=== PATIENT | female | born 1950 | race African-American/Black ===

== ENCOUNTER 2016-03-30 12:35 | Inpatient (IN) | payer MEDICARE, OTHER ==
[~2016-03-30] VITALS: Ht 160 cm; Wt 117.9 kg
[2016-03-30] MEDS ORDERED: DILAUDID 1 MG/ML AMP ONE (20:25)
[2016-03-30] MEDS ORDERED: ONDANSETRON 4 MG VIAL ONE (20:26)
[2016-03-30] MEDS ORDERED: LEVOFLOXACIN 500 MG TAB PO ONE (21:15)
[2016-03-30] MEDS ORDERED: ONDANSETRON 4 MG VIAL IV PUSH PRN (21:55)
[2016-03-30] MEDS ORDERED: CEFTRIAXONE 1 GM VIAL ONE (21:55)
[2016-03-30] MEDS ORDERED: ALPRAZOLAM 0.25 MG TAB PO PRN (21:55)
[2016-03-30] MEDS ORDERED: ACETAMINOPHEN 325 MG TAB PO PRN (21:55)
[2016-03-30] MEDS ORDERED: SODIUM CHLORIDE 0.9% 100 ML IV ONE (21:56)
[2016-03-30] MEDS ORDERED: ACETAMINOPHEN 325 MG TAB ONE (22:03)
[2016-03-30 23:05] VITALS: BP_SYST 168; RESP 18; TEMP 98.6
[2016-03-30 23:06] VITALS: BMI 46.4
[2016-03-31] VITALS (8 sets, daily range): BP systolic 112–160; RESP 16–20; TEMP 96.2–98; Ht 160 cm; Wt 117.9 kg
[2016-03-31] MEDS ORDERED: MISSING DOSE XX ONE ×3 (00:05→16:35)
[2016-03-31] MEDS ORDERED: ONDANSETRON 4 MG VIAL IV PUSH PRN (05:00)
[2016-03-31] MEDS ORDERED: ONDANSETRON 4 MG VIAL ONE (05:01)
[2016-03-31] MEDS ORDERED: DUONEB INH PRN (06:35)
[2016-03-31] MEDS ORDERED: Hydrocodone/APAP 10/325 MG TAB PO PRN (06:35)
[2016-03-31] MEDS: ERYTHROMYCIN 250 MG TAB PO SCH ×3 (09:29→20:45)
[2016-03-31] MEDS: METOCLOPRAMIDE 10 MG/2 ML VIAL IV PUSH SCH ×3 (09:29→17:03)
[2016-03-31] MEDS: PANTOPRAZOLE 40 MG TAB PO SCH (09:29)
[2016-03-31] MEDS: ALPRAZOLAM 1 MG TAB PO SCH ×2 (09:30→20:46)
[2016-03-31] MEDS ORDERED: CALCIUM ACETATE 667MG CAP PO SCH (16:00)
[2016-03-31] MEDS ORDERED: *PINK BRACELET XX ONE (17:15)
[2016-03-31] MEDS: *HOME MEDS IN MED CART XX SCH (20:00)
[2016-03-31] MEDS ORDERED: **NOTE TO NURSE XX SCH (20:00)
[2016-03-31] MEDS: Carvedilol 6.25 MG TAB PO SCH (20:46)
[2016-04-01] MEDS: METOCLOPRAMIDE 10 MG/2 ML VIAL IV PUSH SCH ×3 (06:07→16:00)
[2016-04-01] MEDS: CALCIUM ACETATE 667MG CAP PO SCH ×3 (06:08→16:00)
[2016-04-01] MEDS: PANTOPRAZOLE 40 MG TAB PO SCH (06:08)
[2016-04-01] MEDS: *HOME MEDS IN MED CART XX SCH (07:26)
[2016-04-01 07:50] VITALS: BP_SYST 136; RESP 18; TEMP 97.5
[2016-04-01] MEDS: ERYTHROMYCIN 250 MG TAB PO SCH ×2 (08:21→16:00)
[2016-04-01] MEDS: Carvedilol 6.25 MG TAB PO SCH (08:21)
[2016-04-01] MEDS: ALPRAZOLAM 1 MG TAB PO SCH (08:21)
[2016-04-01] MEDS ORDERED: ALBUMIN HUMAN 25GM (25%) 100 ML IV PRN (08:40)
[2016-04-01] MEDS ORDERED: SODIUM CHLORIDE 0.9% 1,000 ML IV PRN (08:40)
[2016-04-01] MEDS ORDERED: SODIUM CHLORIDE 0.9% 1,000 ML IV SCH (08:40)
[2016-04-01] MEDS ORDERED: ONDANSETRON 4 MG VIAL IV PRN (08:40)
[2016-04-01 11:48] VITALS: BP_SYST 118; RESP 16; TEMP 96.7
[2016-04-01 16:37] VITALS: BP_SYST 118; RESP 16; TEMP 96.7
[2016-04-01 16:47] VITALS: BP_SYST 167; RESP 18; TEMP 97.4
[2016-04-01 17:51] VITALS: BP_SYST 180; RESP 18; TEMP 98.5
== END 2016-04-01 18:46 | disposition home or self-care (01) | DRG 91 ==
LOC: ENRESERVTM → ENRESERVDT → ER 12:35 → EMR 21:34 → 4THE 22:27 → ENPENDDIS 03-31 15:41 → OBSVTOIN 03-31 15:41
PROVIDERS: ADMIT Internal Medicine Nephrology; ATTEND Internal Medicine Nephrology
DX: G92 Toxic encephalopathy (principal); N18.6 End stage renal disease; I13.2 Hypertensive heart and chronic kidney disease with heart failure and with stage 5 chronic kidney disease, or end stage renal disease; D70.1 Agranulocytosis secondary to cancer chemotherapy; F03.90 Unspecified dementia, unspecified severity, without behavioral disturbance, psychotic disturbance, mood disturbance, and anxiety; C90.01 Multiple myeloma in remission; I50.30 Unspecified diastolic (congestive) heart failure; T50.995A Adverse effect of other drugs, medicaments and biological substances, initial encounter; Z99.2 Dependence on renal dialysis; J44.9 Chronic obstructive pulmonary disease, unspecified; G47.33 Obstructive sleep apnea (adult) (pediatric); E66.9 Obesity, unspecified; I25.10 Atherosclerotic heart disease of native coronary artery without angina pectoris; F32.9 Major depressive disorder, single episode, unspecified; F41.9 Anxiety disorder, unspecified; Z82.49 Family history of ischemic heart disease and other diseases of the circulatory system; Z83.3 Family history of diabetes mellitus; Z82.5 Family history of asthma and other chronic lower respiratory diseases; Z80.1 Family history of malignant neoplasm of trachea, bronchus and lung; E11.43 Type 2 diabetes mellitus with diabetic autonomic (poly)neuropathy; K31.84 Gastroparesis
CPT/HCPCS: 36415; 70450; 75809; 80053; 81001; 83690; 85025; 87077; 87088; 87186; 94799; 96374; 96375

== ENCOUNTER 2016-04-08 17:02 | Observation (INO) | payer MEDICARE, OTHER ==
[~2016-04-08] VITALS: Ht 160 cm; Wt 118.7 kg
[2016-04-08] MEDS ORDERED: ACETAMINOPHEN 325 MG TAB PO PRN (19:35)
[2016-04-08] MEDS ORDERED: GLUCAGON 1 MG VIAL IM PRN (19:35)
[2016-04-08] MEDS ORDERED: SALINE FLUSH 10 ML FLUSH PRN (19:35)
[2016-04-08] MEDS ORDERED: DEXTROSE 50% SYRINGE 50 ML IV PRN (19:35)
[2016-04-08] MEDS ORDERED: Atorvastatin 20 MG TAB PO SCH (21:00)
[2016-04-08 22:02] VITALS: BP_SYST 152; RESP 20; TEMP 98.7
[2016-04-08 22:04] VITALS: Ht 160 cm; Wt 118.7 kg
[2016-04-08 22:48] VITALS: RESP 18
[2016-04-08 23:32] VITALS: BP_SYST 191; RESP 20; TEMP 98.9
[2016-04-08] MEDS: SALINE FLUSH 10 ML FLUSH SCH (23:53)
[2016-04-09] VITALS (8 sets, daily range): BP systolic 118–182; RESP 16–18; TEMP 98–98.8
[2016-04-09] MEDS ORDERED: SODIUM CHLORIDE 0.9% FLUSH BAG 500 ML IV SCH (06:00)
[2016-04-09] MEDS: SALINE FLUSH 10 ML FLUSH SCH (08:19)
[2016-04-09] MEDS ORDERED: PROMETHAZINE 25 MG/ML VIAL IV PRN (08:20)
[2016-04-09] MEDS ORDERED: ONDANSETRON 4 MG VIAL IV PUSH PRN (08:20)
[2016-04-09] MEDS ORDERED: Aspirin 325 MG TAB PO SCH (09:00)
[2016-04-09] MEDS ORDERED: ALLOPURINOL 100 MG TAB PO SCH (09:05)
[2016-04-09] MEDS ORDERED: amLODIPine 2.5 MG TAB PO SCH (09:05)
[2016-04-09] MEDS ORDERED: LEVOFLOXACIN 500 MG/100 ML 100 ML IV SCH (09:05)
[2016-04-09] MEDS ORDERED: PREDNISONE 10 MG TAB PO SCH (09:05)
[2016-04-09] MEDS ORDERED: Carvedilol 6.25 MG TAB PO SCH (09:05)
[2016-04-09] MEDS ORDERED: Hydrocodone/APAP 10/325 MG TAB PO PRN (09:05)
[2016-04-09] MEDS ORDERED: BIMATOPROST 0.01% OP SOLN 2.5 ML EYE EACH SCH (09:05)
[2016-04-09] MEDS ORDERED: PANTOPRAZOLE 40 MG TAB PO SCH (09:12)
[2016-04-09] MEDS: METOCLOPRAMIDE 5 MG TAB PO SCH ×2 (09:45→12:32)
== END 2016-04-09 13:48 | disposition home or self-care (01) ==
LOC: ER 17:02 → EMR 19:33 → ENPENDDIS 19:33 → PCU 21:41
PROVIDERS: ADMIT Internal Medicine; ATTEND Internal Medicine
DX: G45.9 Transient cerebral ischemic attack, unspecified (principal); E11.22 Type 2 diabetes mellitus with diabetic chronic kidney disease; N18.6 End stage renal disease; Z99.2 Dependence on renal dialysis; J44.9 Chronic obstructive pulmonary disease, unspecified; G47.33 Obstructive sleep apnea (adult) (pediatric); I13.2 Hypertensive heart and chronic kidney disease with heart failure and with stage 5 chronic kidney disease, or end stage renal disease; I50.30 Unspecified diastolic (congestive) heart failure; E11.43 Type 2 diabetes mellitus with diabetic autonomic (poly)neuropathy; K31.84 Gastroparesis; C90.00 Multiple myeloma not having achieved remission; I25.10 Atherosclerotic heart disease of native coronary artery without angina pectoris; Z98.2 Presence of cerebrospinal fluid drainage device; F03.90 Unspecified dementia, unspecified severity, without behavioral disturbance, psychotic disturbance, mood disturbance, and anxiety; F41.9 Anxiety disorder, unspecified; F32.9 Major depressive disorder, single episode, unspecified; Z79.899 Other long term (current) drug therapy; I77.1 Stricture of artery
CPT/HCPCS: 36415; 70450; 71010; 80047; 80048; 80053; 80061; 82553; 82947; 84484; 85014; 85025; 85384; 85610; 85730; 92610; 93005; 93880; 97161; 97165; 97799; 99291; G0378; G0480; G8978; G8979; G8980; G8987; G8988; G8989; G8996; G8997; G8998; J2405; 80320; 94799